=== PATIENT | male | born 1950 | race Caucasian/White ===

== ENCOUNTER 2016-10-25 08:04 | Outpatient (CLI) | payer OTHER | END 2016-10-25 08:05 | disposition home or self-care (01) | DX: Z00.00 Encounter for general adult medical examination without abnormal findings (principal); E11.9 Type 2 diabetes mellitus without complications; J30.9 Allergic rhinitis, unspecified; I10 Essential (primary) hypertension; I25.9 Chronic ischemic heart disease, unspecified; I50.30 Unspecified diastolic (congestive) heart failure; E78.5 Hyperlipidemia, unspecified; H61.20 Impacted cerumen, unspecified ear; G47.33 Obstructive sleep apnea (adult) (pediatric) ==

== ENCOUNTER 2017-02-10 08:33 | Outpatient (CLI) | payer OTHER | END 2017-02-10 08:34 | disposition home or self-care (01) | DX: N20.0 Calculus of kidney (principal); E11.9 Type 2 diabetes mellitus without complications; J30.9 Allergic rhinitis, unspecified; I10 Essential (primary) hypertension; I25.9 Chronic ischemic heart disease, unspecified; I50.30 Unspecified diastolic (congestive) heart failure; E78.5 Hyperlipidemia, unspecified; M54.5 Low back pain; G47.33 Obstructive sleep apnea (adult) (pediatric) ==

== ENCOUNTER 2017-05-12 10:32 | Outpatient (CLI) | payer OTHER ==
[2017-05-12 11:19] LABS: HEMOGLOBIN A1C 0.91 g/dL
[2017-05-12 13:26] LABS: BILIRUBIN,URINE NEGATIVE (NEGATIVE); PH,URINE 5.5 PH (5.0-7.5)
[2017-05-12 13:31] LABS: UA CHARGE (STRIP ONLY) YES; UR CULTURE IF IND NOT INDICATED
== END 2017-05-12 10:33 | disposition home or self-care (01) ==
LOC: LAB 10:32
PROVIDERS: ATTEND Internal Medicine
DX: J30.9 Allergic rhinitis, unspecified (principal); I10 Essential (primary) hypertension; I25.9 Chronic ischemic heart disease, unspecified; I50.30 Unspecified diastolic (congestive) heart failure; E78.5 Hyperlipidemia, unspecified; M54.5 Low back pain; N20.0 Calculus of kidney; G47.33 Obstructive sleep apnea (adult) (pediatric); E11.9 Type 2 diabetes mellitus without complications
CPT/HCPCS: 36415; 81001; 81003; 83036; 87086

== ENCOUNTER 2017-07-10 07:15 | Outpatient (CLI) | payer OTHER ==
[2017-07-10 07:49] LABS: HEMOGLOBIN A1C 1.03 g/dL
== END 2017-07-10 07:16 | disposition home or self-care (01) ==
LOC: LAB 07:15
PROVIDERS: ATTEND Internal Medicine
DX: E11.9 Type 2 diabetes mellitus without complications (principal)
CPT/HCPCS: 36415; 83036

== ENCOUNTER 2017-07-19 08:49 | Outpatient (CLI) | payer OTHER ==
--- NOTE | 2017-07-19 19:05 | Ultrasound Report ---
RETROPERITONEAL ULTRASOUND: 07/19/2017 No comparison. INDICATION: Nephrolithiasis. TECHNIQUE: Sonographic evaluation of the kidneys and urinary bladder was performed. FINDINGS: There is a right mid renal stone, 1.5 cm without evidence of obstruction. There is a left mid renal stone, 1.1 cm without evidence of obstruction. The kidneys appear otherwise normal in size, contour and echogenicity without mass or hydronephrosis. Right kidney 11.2 cm. Left kidney 12.0 cm. There are bilateral bladder jets. Bladder volume 145 mL. The patient was unable to void for the exam. IMPRESSION: BILATERAL NONOBSTRUCTING RENAL STONES ABOVE. JOB #: [id number] EXT JOB #:[id number]
== END 2017-07-19 08:50 | disposition home or self-care (01) ==
LOC: DI 08:49
PROVIDERS: ATTEND Internal Medicine
DX: N20.0 Calculus of kidney (principal)
CPT/HCPCS: 76770

== ENCOUNTER 2017-09-13 07:21 | Outpatient (CLI) | payer OTHER ==
[2017-09-13 07:56] LABS: HEMOGLOBIN A1C 0.9 g/dL
[2017-09-13 08:23] LABS: BUN - BLOOD UREA NITROGEN 15 mg/dL (6-20); CALCIUM 9.5 mg/dL (8.5-10.3); CARBON DIOXIDE - CO2 28 mmol/L (21-32); CHLORIDE 99 mmol/L (101-111); CHOL/HDL RATIO 3.9 (<5.0); CHOLESTEROL 142 mg/dL; CREATININE 1.2 mg/dL (0.6-1.2); GFR - MDRD 60 (>89); GLUCOSE 154 mg/dL (70-100); HDL CHOLESTEROL 36 mg/dL; POTASSIUM 4.4 mmol/L (3.5-5.0); SODIUM 137 mmol/L (135-145); TRIGLYCERIDES 170 mg/dL; VLDL CHOLESTEROL 34 mg/dL
== END 2017-09-13 07:22 | disposition home or self-care (01) ==
LOC: LAB 07:21
PROVIDERS: ATTEND Internal Medicine
DX: Z00.00 Encounter for general adult medical examination without abnormal findings (principal); E11.9 Type 2 diabetes mellitus without complications; E78.5 Hyperlipidemia, unspecified; I11.0 Hypertensive heart disease with heart failure; I50.30 Unspecified diastolic (congestive) heart failure; N20.0 Calculus of kidney; R31.29 Other microscopic hematuria; Z11.59 Encounter for screening for other viral diseases; J30.9 Allergic rhinitis, unspecified; J45.909 Unspecified asthma, uncomplicated; E66.9 Obesity, unspecified; G47.33 Obstructive sleep apnea (adult) (pediatric); M79.601 Pain in right arm; Z98.61 Coronary angioplasty status
CPT/HCPCS: 36415; 80048; 80061; 82043; 82570; 83036; 86803

== ENCOUNTER 2017-11-01 07:41 | Outpatient (CLI) | payer OTHER ==
[2017-11-01 08:26] LABS: HB2 TOTAL 15.4 g/dL; HEMOGLOBIN A1C 0.89 g/dL; HEMOGLOBIN A1C % 7.4 % (4.6-6.2)
== END 2017-11-01 07:42 | disposition home or self-care (01) ==
LOC: LAB 07:41
PROVIDERS: ATTEND Internal Medicine
DX: Z00.00 Encounter for general adult medical examination without abnormal findings (principal); E11.9 Type 2 diabetes mellitus without complications; J30.9 Allergic rhinitis, unspecified; I10 Essential (primary) hypertension; I25.9 Chronic ischemic heart disease, unspecified; I50.30 Unspecified diastolic (congestive) heart failure; E78.5 Hyperlipidemia, unspecified; N20.0 Calculus of kidney; G47.33 Obstructive sleep apnea (adult) (pediatric)
CPT/HCPCS: 36415; 83036

== ENCOUNTER 2017-12-30 13:07 | Outpatient (CLI) | payer OTHER | END 2017-12-30 13:08 | disposition critical access hospital (66) | LOC: EMS 13:07 | PROVIDERS: ATTEND Surgery | DX: R41.89 Other symptoms and signs involving cognitive functions and awareness (principal) | CPT/HCPCS: A0425; A0427 ==

== ENCOUNTER 2017-12-30 13:23 | Inpatient (IN) | payer OTHER ==
--- NOTE | 2017-12-30 13:38 | ED Physician Documentation ---
PD HPI FOCAL NEURO - Stated complaint Stated Complaint: ALOC - Chief complaint Chief Complaint: Neuro - History obtained from History obtained from: Patient, Family, EMS - History of Present Illness Timing - onset: Other (Suddenly at 11:00 today started to feel "drunk." He had just finished moving some furniture out of the garage, he was not exposed to anything, I specifically asked about pesticides. He feels like his mouth is very dry and he is just kind of out of it. He denies any focal neurologic complaints. His blood sugar in route was slightly high. No new medications.) Review of Systems Ten Systems: 10 systems reviewed and negative Constitutional: reports: Reviewed and negative Nose: reports: Reviewed and negative Throat: reports: Reviewed and negative Cardiac: reports: Reviewed and negative PD PAST MEDICAL HISTORY - Past Medical History Cardiovascular: Hypertension, High cholesterol Respiratory: Asthma, Sleep apnea, CPAP use Endocrine/Autoimmune: Type 2 diabetes Musculoskeletal: Other - Past Surgical History Past Surgical History: Yes Cardiovascular: Angioplasty - Present Medications Home Medications: Ambulatory Orders Medication Instructions Recorded Confirmed Aspirin [Colin] 81 mg PO DAILY 04/21/14 07/09/14 Atorvastatin [Lipitor] 40 mg PO DAILY 04/21/14 07/09/14 Losartan [Cozaar] 100 mg PO DAILY 04/21/14 07/09/14 Metformin HCl [Glucophage] 1,000 mg PO BID 04/21/14 07/18/14 Metoprolol Tartrate 25 mg PO BID 04/21/14 07/09/14 Insulin NPH Human Isophane 20 unit SQ QPM 07/09/14 07/09/14 [Humulin N Kwikpen] Omeprazole 20 mg PO DAILY 07/09/14 07/09/14 - Allergies Allergies/Adverse Reactions: Allergies Allergy/AdvReac Type Severity Reaction Status Date / Time No Known Drug Allergies Allergy Verified 12/30/17 13:30 - Social History Does the pt smoke?: No Smoking Status: Former smoker Does the pt drink ETOH?: Yes Does the pt have substance abuse?: No - Family History Family history: reports: Non contributory PD ED PE NORMAL - Vitals Vital signs reviewed: Yes - General General: Alert and oriented X 3, No acute distress - HEENT HEENT: PERRL, EOMI - Neck Neck: Supple, no meningeal sign, No bony TTP - Cardiac Cardiac: RRR, No murmur - Respiratory Respiratory: No respiratory distress, Clear bilaterally - Abdomen Abdomen: Normal bowel sounds, Soft, Non tender - Back Back: No CVA TTP, No spinal TTP - Derm Derm: Normal color, Warm and dry - Extremities Extremities: No edema, No calf tenderness / cord - Neuro Neuro: Alert and oriented X 3, Normal speech Eye Opening: Spontaneous Motor: Obeys Commands Verbal: Oriented GCS Score: 15 - Psych Psych: Normal mood, Normal affect NIHSS - Time Time: 13:30 - Level of Consciousness Level of consciousness: (0) Alert, Keenly responsive LOC Questions: (0) Answers both Q's correct LOC Commands: (0) Performs both correctly - Gaze Best Gaze: (0) Normal - Visual Visual: (0) No loss - Facial Palsy Facial Palsy: (0) Normal, symmetrical movement - Motor Arms (both separate) Motor Arm (right): (0) No drift Motor Arm (left): (0) No drift - Motor Legs (both separate) Motor Leg (right): (0) No drift Motor Leg (left): (0) No drift - Limb Ataxia Limb Ataxia: (0) Absent - Sensory Sensory: (0) Normal - Best Language Best Language: (0) No aphasia - Dysarthria Dysarthria: (1) [id number] dysarthria - Extinction and Inattention (formally neg Extinction and inattention: (0) No abnormality - Total Score/Results Total Score/Result: 1 Results - Vitals Vitals: Vital Signs - 24 hr 12/30/17 12/30/17 13:25 13:58 Temperature 36 C L Heart Rate 79 72 Respiratory 18 22 Rate Blood Pressure 151/73 H 130/73 O2 Saturation 94 91 L Oxygen O2 Source Room air - EKG (time done) 1413 Rate: Rate (enter#) (72) Rhythm: NSR [place]: Normal Intervals: Normal IN QRS: Normal Ischemia: ST depression (inferior) - Labs Labs: Laboratory Tests 12/30/17 12/30/17 12/30/17 14:11 14:11 14:11 WBC 9.3 RBC 4.63 L Hgb 14.0 Hct 41.5 L MCV 89.7 MCH 30.2 MCHC 33.7 RDW 13.7 Plt Count 247 MPV 7.4 Neut # 7.1 H Lymph # 1.6 [place] # 0.6 Eos # 0.0 Baso # 0.0 Absolute Nucleated RBC 0.00 Nucleated RBC % 0.0 PT 11.3 INR 1.0 Sodium 134 L Potassium 3.3 L Chloride 99 L Carbon Dioxide 21 Anion Gap 14.0 H BUN 17 Creatinine 1.1 Estimated GFR (MDRD) 67 L Glucose 214 H Calcium 8.8 Total Bilirubin 0.6 AST 36 ALT 51 Alkaline Phosphatase 62 Total Protein 6.9 Albumin 4.2 Globulin 2.7 Albumin/Globulin Ratio 1.6 Lipase 12 L Ethyl Alcohol < 5.0 - Rads (name of study) Head CT Radiology: Discussed with rads (NAD) PD MEDICAL DECISION MAKING - ED course ED course: 67-year-old gentleman with symptoms concerning for stroke although seems more toxicologic with a prominent dry mouth and lack of lateralizing symptoms. He went directly for CT and while he was there he spoke with neurology, Dr. Elizabeth Roberts at [facility] who recommended CT angiography in addition to the basic CTs. Unfortunately the power injector is down and we are unable to do CT angiography for the next couple of days. I called her back after the CT was done and discussed the symptoms more and she agrees that this really is not consistent with a stroke syndrome. As such TPA is not further offered were considered. He was having persistent symptoms and I spoke with Dr. Brown for observation at 3:10 PM. She was a little concerned that we would not be able to do other advanced imaging until Monday, but I called the medical research tech and we will be able to do MRI/MRA today. Departure - Departure Disposition: ED Place in Observation Clinical Impression: Stroke-like symptoms Altered mental status Qualifiers: Altered mental status type: disorientation Qualified Code(s): R41.0 - Disorientation, unspecified Condition: Stable
--- NOTE | 2017-12-30 14:26 | CT Preliminary Report ---
Exam: CT HEAD W/O STROKE PROTOCOL IMPRESSION: 1. No acute intra-cranial abnormality. 2. Incompletely characterized ovoid lesion in the superficial left parotid gland, possibly a lymph no de or salivary gland neoplasm. Recommend nonemergent outpatient ultrasound for further evaluation. [facility] The call report notification system was initiated by Dr. Shaheen Wood at 13:55 hrs on 12/30/17. The above findings were discussed with Dr. Urena by Dr. Shaheen Wood at 14:25 hrs on 12/30/17. SITE ID: [id number]
[2017-12-30 14:29] LABS: BASOPHILS % (AUTO) 0.4 %; EOSINOPHILS % (AUTO) 0.5 %; LYMPHOCYTES # (AUTO) 1.6 10^3/uL (1.5-3.5); LYMPHOCYTES % (AUTO) 17.4 %; MEAN CORPUSCULAR HEMOGLOBIN 30.2 pg (27.0-31.0); MEAN CORPUSCULAR HGB CONC 33.7 g/dL (32.0-36.0); MEAN CORPUSCULAR VOLUME 89.7 fL (80.0-94.0); MEAN PLATELET VOLUME 7.4 fL (7.4-11.4); MONOCYTES # (AUTO) 0.6 10^3/uL (0.0-1.0); NEUTROPHILS # (AUTO) 7.1 10^3/uL (1.5-6.6); NEUTROPHILS % (AUTO) 75.7 %; PLT - PLATELET COUNT 247 10^3/uL (130-450); RED BLOOD COUNT 4.63 10^6/uL (4.70-6.10); RED CELL DISTRIBUTION WIDTH 13.7 % (12.0-15.0); WHITE BLOOD COUNT 9.3 x10^3/uL (4.8-10.8)
[2017-12-30 14:32] LABS: PT - PROTHROMBIN TIME 11.3 secs (9.9-12.6)
[2017-12-30 14:40] LABS: ALBUMIN 4.2 g/dL (3.2-5.5); ALBUMIN/GLOBULIN RATIO 1.6 (1.0-2.2); ALKALINE PHOSPHATASE 62 IU/L (42-121); ALT ALANINE AMINOTRANSFERASE 51 IU/L (10-60); AST ASPARTATE AMINOTRANSFERASE 36 IU/L (10-42); BILIRUBIN,TOTAL 0.6 mg/dL (0.2-1.0); BUN - BLOOD UREA NITROGEN 17 mg/dL (6-20); CALCIUM 8.8 mg/dL (8.5-10.3); CARBON DIOXIDE - CO2 21 mmol/L (21-32); CHLORIDE 99 mmol/L (101-111); CREATININE 1.1 mg/dL (0.6-1.2); GFR - MDRD 67 (>89); GLUCOSE 214 mg/dL (70-100); LIPASE 12 U/L (22-51); SODIUM 134 mmol/L (135-145); TOTAL PROTEIN 6.9 g/dL (6.7-8.2)
--- NOTE | 2017-12-30 14:45 | CT Report ---
EXAM: CT HEAD EXAM DATE: 12/30/2017 01:46 PM. CLINICAL HISTORY: Possible CVA. COMPARISON: None. TECHNIQUE: Multiaxial CT images were obtained from the foramen magnum to the vertex. Reformats: Coron al. IV contrast: None. In accordance with CT protocol optimization, one or more of the following dose reduction techniques w ere utilized for this exam: automated exposure control, adjustment of mA and/or KV based on patient s ize, or use of iterative reconstructive technique. FINDINGS: Parenchyma: No intraparenchymal hemorrhage. No evidence of mass, midline shift, or CT findings of inf arction. Benitez-white differentiation is distinct. Extraaxial Spaces: Normal for age. No subdural or epidural collections identified. Ventricles: Normal in size and position. Sinuses and Orbits: Imaged paranasal sinuses, orbits, and mastoids show no significant abnormality. Bones: No evidence of fracture or calvarial defect. Other: Calcification of the distal bilateral vertebral arteries as well as the internal carotid arter ies noted. -Mildly hyperdense 8 x 11 mm ovoid focus in the region of the superficial left parotid gland (3/3). IMPRESSION: 1. No acute intracranial abnormality. 2. Incompletely characterized ovoid lesion in the superficial left parotid gland, possibly a lymph no de or salivary gland neoplasm. Recommend nonemergent outpatient ultrasound for further evaluation. RADIA The call report notification system was initiated by Dr. Shaheen Wood at 13:55 hrs on 12/30/17. The above findings were discussed with Dr. Urena by Dr. Shaheen Wood at 14:25 hrs on 12/30/17. Referring Provider Line: [phone] SITE ID: [id number]
--- NOTE | 2017-12-30 15:24 | XRAY Report ---
EXAM: CHEST RADIOGRAPHY EXAM DATE: 12/30/2017 02:47 PM. CLINICAL HISTORY: Cva. COMPARISON: 06/10/2014. TECHNIQUE: 2 views. FINDINGS: Lungs/Pleura: No focal opacities evident. No pleural effusion. No pneumothorax. Eventration of the le ft hemidiaphragm noted. Mediastinum: Heart and mediastinal contours are unremarkable. Other: None. IMPRESSION: 1. No acute intrathoracic abnormality identified. 2. Eventration of the left hemidiaphragm noted. [facility] Referring Provider Line: [phone] SITE ID: [id number]
[2017-12-30] MEDS ORDERED: SODIUM CHLORIDE FLUSH 0.9% 10 ML SYRINGE IVP PRN (15:53)
[2017-12-30] MEDS ORDERED: ONDANSETRON 4 MG/2 ML VIAL IVP PRN (16:09)
[2017-12-30] MEDS ORDERED: PROMETHAZINE 25 MG/1 ML VIAL IV PRN (16:09)
[2017-12-30] MEDS ORDERED: ACETAMINOPHEN 325 MG TABLET PO PRN (16:09)
[2017-12-30] MEDS ORDERED: GADOBUTROL 15 MMOL/15 ML VIAL ONE ×2 (16:12→16:13)
[2017-12-30] MEDS ORDERED: POTASSIUM CHLORIDE 20 MEQ TABLET PO ONE (17:25)
[2017-12-30] MEDS ORDERED: GADOBUTROL 15 MMOL/15 ML VIAL IVP ONE (17:29)
[2017-12-30] MEDS: SODIUM CHLORIDE FLUSH 0.9% 10 ML SYRINGE IVP SCH (18:19)
[2017-12-30] MEDS ORDERED: SODIUM CHLORIDE 0.9% 500 ML IV ONE (18:35)
--- NOTE | 2017-12-30 19:08 | MRI Report ---
EXAM: MRI BRAIN WITHOUT CONTRAST MR ANGIOGRAM BRAIN MR ANGIOGRAM NECK EXAM DATE: 12/30/2017 05:35 PM. CLINICAL HISTORY: Stroke like symptoms. Short of breath. COMPARISON: None. TECHNIQUE: MRI brain: Multiplanar, multisequence T1-weighted and fluid-sensitive MR sequences of the brain were performed. Sequences optimized for routine evaluation. Other: None. IV Contrast: None. MRA brain: MRA brain performed, multiple maximum intensity projection images are generated. MRA neck: Postcontrast MRA neck performed, multiple maximum intensity projection images are generated . 12 cc Gadavist given intravenously. Findings: Relevant images are indicated (image number, series number). MRI brain: There is no acute or subacute ischemic change in the brain. There is no significant hemosi kesha deposition present in the brain. There is no hemorrhage, mass or midline shift. Results cistern s, bilateral IACs, bilateral Meckel's caves are clear. Orbital contents negative, patient status post right lens surgery. Moderate brain atrophy, moderate compensatory ventricular enlargement. Mild scat tered periventricular, subcortical white matter disease present. Pituitary unremarkable. Mild midbrai n atrophy. Craniocervical junction, limited evaluation upper cervical cord negative. MR angiogram brain: Left ICA: Patent including the MCA, NIMO distribution. There is a prominent anterior communicating art cirilo, no aneurysm seen. Right ICA: Patent including MCA distribution with either motion artifact versus atherosclerotic narro wing proximal M2 segment likely contributing to the angular artery. Small poorly seen right A1 segmen t. Remaining right NIMO distribution widely patent. Posterior circulation: Patent distal bilateral vertebral arteries, basilar artery, patent bilateral P CA distribution. MRA neck: Aortic arch: Patent, bovine configuration. Left carotid artery: Widely patent. Right carotid artery: At least 30-40% suspected atherosclerotic narrowing proximal ICA, otherwise pat ent. Left vertebral artery: Proximal tortuosity, likely less than 20% ostial narrowing, otherwise patent. Right vertebral artery: At least 50-60% ostial narrowing, otherwise patent. No aneurysm, dissection, or AVM. Impressions: MRI brain: 1. No acute or subacute ischemic change. 2. Moderate brain atrophy, mild scattered white matter disease most likely related to chronic small v essel ischemic disease. MRA brain: 1. Left ICA: Patent. 2. Right ICA: Patent, suspicion for atherosclerotic narrowing proximal M2 segment likely angular bran ch artery, there is motion artifact. Otherwise patent MCA, NIMO distribution. Hypoplastic right A1 seg ment. 3. Posterior circulation: Patent. MRA neck: 1. Aortic arch: Patent, bovine configuration. 2. Left carotid artery: Widely patent. 3. Right carotid artery: At least 30-40% suspected atherosclerotic narrowing of the proximal ICA, oth erwise patent. 4. Left vertebral artery: 20% ostial narrowing, otherwise patent. 5. Right vertebral artery: 50-60% ostial narrowing, otherwise patent. 6. No aneurysm, dissection, or AVM. RADIA Referring Provider Line: [phone] SITE ID: [id number]
[2017-12-30 19:37] LABS: HB2 TOTAL 15.4 g/dL; HEMOGLOBIN A1C 0.94 g/dL; HEMOGLOBIN A1C % 7.7 % (4.6-6.2)
[2017-12-30] MEDS ORDERED: METOPROLOL TARTRATE 25 MG TABLET PO SCH (21:00)
[2017-12-30] MEDS ORDERED: INSULIN NPH HUMAN 100 UNIT/1 ML 10 ML MDV SUBQ SCH (21:00)
[2017-12-30] MEDS: INSULIN ASPART 300 UNIT/3 ML PEN SUBQ SCH (21:23)
[2017-12-31] MEDS: SODIUM CHLORIDE FLUSH 0.9% 10 ML SYRINGE IVP SCH (00:52)
--- NOTE | 2017-12-31 01:15 | HISTORY & PHYSICAL EXAMINATION ---
DATE OF SERVICE: 12/30/2017 Physician: Sheila Brown MD CHIEF COMPLAINT: Feeling off balance. HISTORY OF PRESENT ILLNESS: The patient is a 67-year-old white male with past medical history of obstructive sleep apnea, hypertension, diabetes and coronary artery disease, who was in his usual state of health up to about 11 a.m. on 12/30/2017. Prior to that, he was feeling well. He was actually moving some boxes and getting some work around his house. Around 11, he suddenly started to feel a sense of dizziness, dysequilibrium/being off balance. He described it that the feeling was similar to being drunk; however, he did not drink any alcohol. He also had some dry mouth but denied headache. Did not have focal weakness or numbness. Denied dysuria, fever, cough or chest pain. He never experienced similar symptoms in the past. Upon presentation to the ER, the patient had stable vital signs and he was afebrile. ER workup was fairly unrevealing, including negative CT scan of the brain. There was a chest x-ray which showed left hemidiaphragm eventration but no acute abnormality. EKG showed sinus rhythm. Troponin was unremarkable. There were minor laboratory abnormalities including sodium 134, potassium 3.3, blood glucose 214, but no abnormality to explain the patient's symptoms. Alcohol level was 0. Coagulation studies were unremarkable. White blood cell count was normal. Hemoglobin was 14. Platelet count was 247. At the ER, the patient had an NIH stroke scale 1 for dysarthria. The case was discussed with Teleneurology. They did not recommend TPA or transfer of this patient. They recommended further workup with the probable diagnosis of cerebrovascular accident. PAST MEDICAL HISTORY 1. Hypertension. 2. Insulin-dependent diabetes, diagnosed about 10 years ago, type 2. 3. Coronary artery disease, status post stent placement in 2011. OUTPATIENT MEDICATIONS: Include 1. Metoprolol. 2. Hydrochlorothiazide. 3. Losartan. 4. Aspirin. 5. Lipitor. 6. Metformin. 7. Insulin. REVIEW OF SYSTEMS: Please see pertinent positives and pertinent negatives listed above at history of present illness. I completed 12-point review and the patient denied all other complaints. In particular, he did not report changes in his medications or doing anything unusual. Did not report sick contacts either. PRIMARY CARE PHYSICIAN: Dr. Ramesh Camacho. SOCIAL HISTORY: The patient does not smoke. He drinks alcohol almost every day , but when he does not drink, he does not have any symptoms with anxiety or withdrawal-like issue. FAMILY HISTORY: Positive for cerebrovascular accident in the mother at age 60. ER workup reviewed per electronic medical record. PHYSICAL EXAMINATION VITAL SIGNS: Blood pressure 146/71, heart rate between 60 and 70, respiration rate 16, oxygen saturation 96% on room air, temperature 36.4 Celsius. GENERAL: This is a well-developed male with truncal obesity. He was not in distress. NEUROLOGIC: No double vision. Intact speech and cognition. No facial asymmetry. No focal neurological abnormality. PSYCHIATRIC: Normal mood and affect. CARDIOVASCULAR: S1, S2, regular. No pathologic murmur. RESPIRATORY: Clear to auscultation without wheezes or crackles. ABDOMEN: Soft, benign, slightly distended, nontender. Bowel tones present. LYMPHATIC: No lymphedema. SKIN: Without jaundice or pallor. ASSESSMENT AND PLAN 1. This 67-year-old male presents with sudden onset of dysequilibrium, dizziness, a sense of being off balance. This could be a posterior stroke until proven otherwise. The patient has multiple risk factors, including obesity, diabetes, family history, hypertension, and history of coronary artery disease as well. Additional possibilities would include benign etiology such as occult urinary tract infection, transient ischemic attack, or labyrinthitis. 2. Hyperglycemia/uncontrolled diabetes. 3. Mild electrolyte abnormalities including hypokalemia and hyponatremia, likely secondary to diuretic use including hydrochlorothiazide and losartan. 4. Incidental finding on CT scan of the head: left-sided parotid or salivary gland lesion which was read as a lymph node; however, it needs to be followed up with non-urgent outpatient ultrasound to rule out malignancy. Again, this is an incidental finding. The patient will need to be updated on this and have outpatient followup. If this would be a malignancy, then obviously brain malignancy or metastatic disease would be on the differential diagnosis as well, and for that, MRI brain would provide further result. 5. Incidental finding on x-ray of the chest: left-sided hemidiaphragm eventration; no symptoms. 6. Obstructive sleep apnea, on CPAP, stable. 7. Coronary artery disease, appears stable with negative troponin. PLAN AND ORDERS 1. Patient is getting admitted as inpatient. At this point, the diagnosis is probable cerebrovascular accident, and for that, further workup and monitoring is needed. MRI and MRA of head and neck were ordered and currently pending. We will order echocardiogram, monitor the patient on telemetry, recheck troponin. We will monitor blood glucose on sliding scale and continue outpatient medications as appropriate. I will hold diuretics as the patient appeared dehydrated and he had electrolyte abnormalities. For secondary stroke protection, we will continue aspirin and statin. 2. Regarding the salivary gland or parotid abnormality, I will update the patient tomorrow and will discuss followup with ultrasound. 3. Deep venous thrombosis prophylaxis, supportive care, symptom control. 4. Further plan will depend on the clinical course. Attestation: I certify that the reasonable expectation is that the patient remains hospitalized for 48 hrs, but will likely discharge or transfer to another facility within 96 hrs. Time spent with this admission was 55 minutes. cc: Ramesh Camacho MD TD: 12/31/2017 01:15 MTDD
[2017-12-31 01:22] LABS: BILIRUBIN,URINE NEGATIVE (NEGATIVE); GLUCOSE, URINE (UA) NEGATIVE (NEGATIVE); KETONES,URINE (UA) NEGATIVE (NEGATIVE); LEUKOCYTE ESTERASE, URINE NEGATIVE (NEGATIVE); NITRITE,URINE NEGATIVE (NEGATIVE); OCCULT BLOOD,URINE NEGATIVE (NEGATIVE); PH,URINE 5.5 PH (5.0-7.5); PROTEIN,URINE NEGATIVE (NEGATIVE); UROBILINOGEN,URINE 0.2 (NORMAL) E.U./dL (NORMAL)
[2017-12-31 01:30] LABS: CLARITY,URINE CLEAR (CLEAR)
[2017-12-31 01:49] LABS: AMPHETAMINE SCREEN,URINE NEGATIVE (NEGATIVE); BENZODIAZEPINES SCREEN, URINE NEGATIVE (NEGATIVE); COCAINE SCREEN URINE NEGATIVE (NEGATIVE); METHADONE SCREEN, URINE NEGATIVE (NEGATIVE); METHAMPHETAMINES SCREEN, URINE NEGATIVE (NEGATIVE); MUDS CUTOFF CONCENTRATIONS CUTOFF CONC BELOW:; OPIATE SCREEN, URINE NEGATIVE (NEGATIVE); OXYCODONE SCREEN, URINE NEGATIVE (NEGATIVE); PROPOXYPHENE SCREEN, URINE NEGATIVE (NEGATIVE); TRICYCLIC ANTIDEPRESSANT,URINE NEGATIVE (NEGATIVE)
[2017-12-31 08:06] VITALS: BP 124/65
[2017-12-31] MEDS: INSULIN ASPART 300 UNIT/3 ML PEN SUBQ SCH (08:27)
--- NOTE | 2017-12-31 08:55 | Discharge Plan ---
Discharge Plan Disposition: Home, Self Care Condition: Stable Prescriptions: Metoprolol Succinate [Toprol Xl] 25 mg PO DAILY #30 tablet Diet: Diabetic Activity Restrictions: Activity as Tolerated Additional Instructions or Follow Up instructions: 1. Hold Losartan, check blood pressure daily, if above 155 restart Losartan. 2. Please note, heart rate was slower than normal, metoprolol was decreased. If HR is lower than 50 stop metoprolol. 3. Follow up with PCP/ Dr. Camacho for adjustment of blood pressure medications. Might need cardiology follow up, if heart rate is found lower than 50. 4. Have outpatient ultrasound for left facial/parotis node to further evaluate. Follow up with PCP to order the test. No Smoking: If you smoke, Please STOP! Call for help. Follow-up with: Ramesh Camacho MD [Primary Care Provider] -
[2017-12-31] MEDS ORDERED: PANTOPRAZOLE 40 MG TABLET PO SCH (09:00)
[2017-12-31] MEDS ORDERED: ATORVASTATIN 40 MG TABLET PO SCH (09:00)
[2017-12-31] MEDS ORDERED: POLYETHYLENE GLYCOL 3350 17 GM PACKET PO SCH (09:00)
[2017-12-31] MEDS ORDERED: ENOXAPARIN 40 MG/0.4 ML SYRINGE SUBQ SCH (09:00)
[2017-12-31] MEDS ORDERED: ASPIRIN CHEW 81 MG TABLET PO SCH (09:00)
--- NOTE | 2017-12-31 19:56 | DISCHARGE SUMMARY ---
Physician: Sheila Brown MD DATE OF ADMISSION: 12/30/2017 DATE OF DISCHARGE: 12/31/2017 DISCHARGE DIAGNOSES 1. Disequilibrium, dizziness, dysarthria, likely multifactorial, was ruled out for acute cerebrovascular accident. 2. Dehydration/borderline low blood pressure and bradycardia. 3. Labyrinthitis/acute viral syndrome could contribute. 4. Mild electrolyte abnormalities/hypokalemia and hyponatremia, replaced prior to discharge. DISCHARGE MEDICATIONS 1. Losartan is recommended to be on hold. The patient is instructed to measure his blood pressure and restart losartan if systolic blood pressure is above 155. 2. Metoprolol 25 mg twice daily was decreased to half. 3. A prescription for Toprol-XL 25 mg once a day was given. Next, the following medications continued unchanged. 1. Aspirin. 2. Lipitor. 3. Insulin NPH. 4. Metformin. 5. Omeprazole. For doses and frequencies, I refer to the medication reconciliation. DISCHARGE RECOMMENDATIONS 1. Hold losartan, check blood pressure daily. If systolic blood pressure above 155 restart losartan. 2. Please note heart rate was slower than normal. Metoprolol was decreased. If heart rate is lower than 50, stop metoprolol and follow up with the primary care physician. 3. Follow up with the primary care physician, Dr. Camacho, for adjustment of blood pressure medications, also for better diabetic control as hemoglobin A1c was found at 7.7. Might need cardiology followup if heart rate is found lower than 50. In that case, obviously metoprolol will need to be discontinued. 4. Have outpatient ultrasound for left facial/parotid node for further evaluation. Follow up with primary care physician, Dr. Camacho, to order the outpatient test. DISCHARGE CONDITION VITAL SIGNS: Heart rate between 51 and 61, blood pressure 124/65, respiratory rate of 20, oxygen saturation 98% on room air, temperature 36.7 Celsius. GENERAL: The patient is a well-developed male who was not in distress. NEUROLOGIC: Alert, oriented, nonfocal. Intact speech and cognition. No focal neurologic abnormality. SECONDARY DIAGNOSES/PAST MEDICAL HISTORY 1. Obstructive sleep apnea, using nocturnal CPAP. 2. Hypertension. 3. Type 2 diabetes/insulin-dependent. 4. History of coronary artery disease, status post stent placement. DIAGNOSTIC TESTS 1. Echocardiogram showed normal ejection fraction 60-65%, normal left ventricular systolic function, no wall motion abnormality. Grade II diastolic dysfunction. 2. CT scan of the head showed no acute intracranial abnormality. It showed an incidental finding of incompletely characterized ovoid lesion in the superficial left parotid gland, possibly a lymph node or a salivary gland. Further outpatient ultrasound was recommended on a nonemergent basis. 3. MRI of the brain showed no acute intracranial abnormality. It showed chronic small vessel ischemic disease. 4. MRA showed no hemodynamically significant stenosis or vascular occlusion. 5. Telemetry showed no abnormal event except for sinus bradycardia, HR 50-60. 6. EKG showed sinus rhythm with nonspecific ST abnormalities, no ischemia. LABORATORIES: Included, hemoglobin A1c 7.7, potassium 3.3. Normal thyroid function, normal B12 level. Unremarkable liver function tests and a normal troponin. White blood cell count was normal. Hemoglobin was 14, platelet count was normal. Coagulation studies were unremarkable. ESR was 11. Urinalysis was negative. Toxicology screen was positive for cannabinoid. Alcohol level was undetectable. BRIEF PRESENTATION AND HOSPITAL COURSE: Mr. Davenport is a 67-year-old white male with the above listed past medical problems, who presented with acute onset of disequilibrium, dizziness, and feeling acutely ill. He underwent workup for cerebrovascular accident or other abnormality and had a short hospital stay during which he improved back to his baseline. The only intervention was hydration and outpatient antihypertensives were on hold. During the hospital stay, the patient had normal blood pressure, regardless of not getting antihypertensives and he was found dehydrated. After hydration, electrolyte replacement he felt back to his normal state of health. The etiology of his symptoms was most likely dehydration plus/ minus viral illness /labyrinthitis. Prior to discharge, I discussed medication adjustment with the patient. Losartan is on hold due to blood pressure is still on the lower side/normal. Metoprolol was decreased due to bradycardia and we recommend blood pressure and heart rate checks and following up with the primary care physician for further adjustment if needed. Prior to discharge, the patient verbalized understanding of discharge plan and followup. He is discharging in stable condition. He is recommended close outpatient followup. Time spent with this discharge, more than 30 minutes. TD: 12/31/2017 19:54 TERRY
== END 2017-12-31 09:30 | disposition home or self-care (01) | DRG 641 ==
LOC: EDUNIT# → ED 13:23 → MS2 15:53
PROVIDERS: ADMIT Internal Medicine; ATTEND Internal Medicine
DX: E86.0 Dehydration (principal); B34.9 Viral infection, unspecified; H83.09 Labyrinthitis, unspecified ear; E87.6 Hypokalemia; E87.1 Hypo-osmolality and hyponatremia; R00.1 Bradycardia, unspecified; T44.7X5A Adverse effect of beta-adrenoreceptor antagonists, initial encounter; I95.2 Hypotension due to drugs; T46.5X5A Adverse effect of other antihypertensive drugs, initial encounter; I10 Essential (primary) hypertension; E78.00 Pure hypercholesterolemia, unspecified; E11.65 Type 2 diabetes mellitus with hyperglycemia; I25.10 Atherosclerotic heart disease of native coronary artery without angina pectoris; G47.33 Obstructive sleep apnea (adult) (pediatric); E66.9 Obesity, unspecified; Z79.4 Long term (current) use of insulin; Z79.82 Long term (current) use of aspirin; Z87.891 Personal history of nicotine dependence; Z95.5 Presence of coronary angioplasty implant and graft; Z68.37 Body mass index [BMI] 37.0-37.9, adult; Z82.3 Family history of stroke
CPT/HCPCS: 36415; 70450; 70544; 70549; 70551; 71046; 80053; 80306; 80320; 81001; 81003; 82607; 83036; 83690; 84443; 84484; 85025; 85610; 85651; 87086; 93005; 93306; 99284; 99285

== ENCOUNTER 2018-01-23 10:00 | Outpatient (CLI) | payer OTHER ==
[2018-01-23 10:38] LABS: HB2 TOTAL 15.6 g/dL; HEMOGLOBIN A1C 0.9 g/dL; HEMOGLOBIN A1C % 7.4 % (4.6-6.2)
== END 2018-01-23 10:01 | disposition home or self-care (01) ==
LOC: LAB 10:00
PROVIDERS: ATTEND Internal Medicine
DX: J30.9 Allergic rhinitis, unspecified (principal); I25.9 Chronic ischemic heart disease, unspecified; I11.0 Hypertensive heart disease with heart failure; I50.30 Unspecified diastolic (congestive) heart failure; E11.9 Type 2 diabetes mellitus without complications; E78.5 Hyperlipidemia, unspecified; N20.0 Calculus of kidney; G47.33 Obstructive sleep apnea (adult) (pediatric); B35.1 Tinea unguium
CPT/HCPCS: 36415; 83036

== ENCOUNTER 2018-05-22 13:59 | Outpatient (CLI) | payer OTHER ==
[2018-05-22 14:32] LABS: HB2 TOTAL 15.3 g/dL; HEMOGLOBIN A1C 0.81 g/dL
== END 2018-05-22 14:00 | disposition home or self-care (01) ==
LOC: LAB 13:59
PROVIDERS: ATTEND Internal Medicine
DX: E11.9 Type 2 diabetes mellitus without complications (principal); J30.9 Allergic rhinitis, unspecified; I10 Essential (primary) hypertension; I25.9 Chronic ischemic heart disease, unspecified; I50.30 Unspecified diastolic (congestive) heart failure; E78.5 Hyperlipidemia, unspecified; R22.1 Localized swelling, mass and lump, neck; G47.33 Obstructive sleep apnea (adult) (pediatric); B35.1 Tinea unguium
CPT/HCPCS: 36415; 83036

== ENCOUNTER 2018-08-08 08:21 | Emergency (ER) | payer OTHER ==
[2018-08-08 08:34] VITALS: BP 143/70
[2018-08-08] MEDS ORDERED: BUFFERED LIDOCAINE 10 ML SYRINGE SUBQ STA (08:42)
--- NOTE | 2018-08-08 08:58 | ED Physician Documentation ---
PD HPI UPPER EXT INJURY - Stated complaint Stated Complaint: LEFT HAND LAC - Chief complaint Chief Complaint: Laceration - History obtained from History obtained from: Patient - History of Present Illness Location: Left, Hand Type of injury: Laceration Where injury occurred: Home Timing - onset: Today Timing - duration: Minutes Timing - details: Abrupt onset, Still present Improved by: Rest Worsened by: Moving, Palpating Associated symptoms: No: Weakness, Numbness, Tingling Contributing factors: No: Anticoagulated Similar symptoms before: Diagnosis (laceration) Recently seen: Not recently seen - Additonal information Additional information: 68-year-old male was doing the dishes washing a cocktail glass when it broke and lacerated his left palm. He is able to control bleeding with direct pressure comes into the emergency department now for suturing. He is up-to-date on his t etanus. Review of Systems Constitutional: denies: Fever Respiratory: denies: Cough GI: denies: Nausea, Vomiting Skin: reports: Laceration (s) Musculoskeletal: reports: Extremity pain. denies: Neck pain, Back pain PD PAST MEDICAL HISTORY - Past Medical History Cardiovascular: Hypertension, High cholesterol, Angina Respiratory: Asthma, Sleep apnea, CPAP use Endocrine/Autoimmune: Type 2 diabetes GI: Hemorrhoids : Kidney stones HEENT: Other Psych: None Musculoskeletal: None Derm: None - Past Surgical History Past Surgical History: Yes Cardiovascular: Angioplasty - Present Medications Home Medications: Ambulatory Orders Medication Instructions Recorded Confirmed Aspirin [Colin] 81 mg PO DAILY 04/21/14 07/09/14 Atorvastatin [Lipitor] 40 mg PO DAILY 04/21/14 07/09/14 Metformin HCl [Glucophage] 1,000 mg PO BID 04/21/14 07/18/14 Insulin NPH Human Isophane 20 unit SQ QPM 07/09/14 07/09/14 [Humulin N Kwikpen] Omeprazole 20 mg PO DAILY 07/09/14 07/09/14 Metoprolol Succinate [Toprol Xl] 25 mg PO DAILY #30 tablet 12/31/17 - Allergies Allergies/Adverse Reactions: Allergies Allergy/AdvReac Type Severity Reaction Status Date / Time No Known Drug Allergies Allergy Verified 08/08/18 08:34 - Social History Does the pt smoke?: No Smoking Status: Former smoker Does the pt drink ETOH?: Yes Does the pt have substance abuse?: No PD ED PE NORMAL - Vitals Vital signs reviewed: Yes (hypertensive ) - General General: Alert and oriented X 3, No acute distress, Well developed/nourished - HEENT HEENT: Atraumatic, PERRL, EOMI - Respiratory Respiratory: No respiratory distress - Derm Derm: Normal color, Warm and dry, No rash - Extremities Extremities: No deformity, No edema, Other (There is a 2cm laceration to the left palm over the web space between the 1st and 2nd digits. The distal n/v is intact and the laceration does not involve deeper structures. ) - Neuro Neuro: Alert and oriented X 3, med peds 2-12 intact, No motor deficit, No sensory deficit, Normal speech Eye Opening: Spontaneous Motor: Obeys Commands Verbal: Oriented GCS Score: 15 - Psych Psych: Normal mood, Normal affect Results - Vitals Vitals: Vital Signs - 24 hr 08/08/18 08:31 Temperature 35.7 C L Heart Rate 56 L Respiratory 14 Rate Blood Pressure 143/70 H O2 Saturation 96 Oxygen O2 Source Room air Procedures - Laceration (location) left hand Length in cm: 2 Wound type: Linear, Clean Neurovascular status: Sensory intact, Motor intact, Vascular intact Anesthesia: Lidocaine 1%, With bicarb Wound Preparation: Hibiclens, Irrigated copiously NS, Wound explored, To the base Skin layer closure: Nylon, Interrupted, Size #-0 - enter number (4-0), Sutures - enter # (3) Other: Patient tolerated well, No complications, Neurovascular intact, Dressing applied, Tetanus UTD Complexity: Simple PD MEDICAL DECISION MAKING - ED course Complexity details: considered differential, d/w patient ED course: 68-year-old male with a palm laceration sutures placed tolerates these well. He is up-to-date on his last tetanus Departure - Departure Disposition: 01 Home, Self Care Clinical Impression: Hand laceration Qualifiers: Encounter type: initial encounter Foreign body presence: without foreign body Laterality: left Qualified Code(s): S61.412A - Laceration without foreign body of left hand, initial encounter Condition: Stable Instructions: ED Laceration Hand Follow-Up: Ramesh Camacho MD [Primary Care Provider] - Comments: Sutures will need to be removed in 7-10 days.
== END 2018-08-08 09:19 | disposition home or self-care (01) ==
LOC: ED 08:21
DX: S61.412A Laceration without foreign body of left hand, initial encounter (principal); W25.XXXA Contact with sharp glass, initial encounter; Y93.G1 Activity, food preparation and clean up; Y92.009 Unspecified place in unspecified non-institutional (private) residence as the place of occurrence of the external cause; Z87.891 Personal history of nicotine dependence; I10 Essential (primary) hypertension
CPT/HCPCS: 12001; 99282; 99283

== ENCOUNTER 2018-08-23 07:32 | Outpatient (CLI) | payer OTHER ==
[2018-08-23 08:32] LABS: ALBUMIN 4.2 g/dL (3.2-5.5); ALBUMIN/GLOBULIN RATIO 1.5 (1.0-2.2); ALKALINE PHOSPHATASE 61 IU/L (42-121); ALT ALANINE AMINOTRANSFERASE 31 IU/L (10-60); AST ASPARTATE AMINOTRANSFERASE 25 IU/L (10-42); BILIRUBIN,TOTAL 0.6 mg/dL (0.2-1.0); BUN - BLOOD UREA NITROGEN 19 mg/dL (6-20); CALCIUM 9.4 mg/dL (8.5-10.3); CARBON DIOXIDE - CO2 27 mmol/L (21-32); CHLORIDE 102 mmol/L (101-111); CHOL/HDL RATIO 4.3 (<5.0); CHOLESTEROL 176 mg/dL; GFR - MDRD 74 (>89); GLUCOSE 139 mg/dL (70-100); HDL CHOLESTEROL 41 mg/dL; LDL CHOLESTEROL,CALCULATED 101 mg/dL; LDL/HDL RATIO 2.5 (<3.6); SODIUM 135 mmol/L (135-145); VLDL CHOLESTEROL 34 mg/dL
[2018-08-23 08:53] LABS: HB2 TOTAL 16.4 g/dL; HEMOGLOBIN A1C 0.94 g/dL; HEMOGLOBIN A1C % 7.4 % (4.6-6.2)
[2018-08-23 09:43] LABS: CREATININE,URINE 92.1 mg/dL
[2018-08-23 09:49] LABS: MICROALBUMIN,URINE < 0.2 mg/dL (0-300.0)
[2018-08-24 14:41] LABS: HEPATITIS C ANTIBODY NON-REACTIVE (NON-REACTIVE)
== END 2018-08-23 07:33 | disposition home or self-care (01) ==
LOC: LAB 07:32
PROVIDERS: ATTEND Internal Medicine
DX: Z00.00 Encounter for general adult medical examination without abnormal findings (principal); J30.9 Allergic rhinitis, unspecified; I10 Essential (primary) hypertension; I25.9 Chronic ischemic heart disease, unspecified; I50.30 Unspecified diastolic (congestive) heart failure; E78.5 Hyperlipidemia, unspecified; N20.0 Calculus of kidney; G47.33 Obstructive sleep apnea (adult) (pediatric); B35.1 Tinea unguium; L98.9 Disorder of the skin and subcutaneous tissue, unspecified
CPT/HCPCS: 36415; 80053; 80061; 82043; 82570; 83036; 83721; 86803

== ENCOUNTER 2018-12-06 14:12 | Outpatient (CLI) | payer OTHER ==
[2018-12-06 15:56] LABS: HEMOGLOBIN A1C 0.79 g/dL
== END 2018-12-06 14:13 | disposition home or self-care (01) ==
LOC: LAB 14:12
PROVIDERS: ATTEND Internal Medicine
DX: E11.9 Type 2 diabetes mellitus without complications (principal)
CPT/HCPCS: 36415; 83036

== ENCOUNTER 2019-05-30 07:52 | Outpatient (CLI) | payer OTHER ==
[2019-05-30 13:59] LABS: HB2 TOTAL 14.7 g/dL; HEMOGLOBIN A1C 0.77 g/dL; HEMOGLOBIN A1C % 6.9 % (4.6-6.2)
== END 2019-05-30 07:53 | disposition home or self-care (01) ==
LOC: LAB 07:52
PROVIDERS: ATTEND Internal Medicine
DX: E11.9 Type 2 diabetes mellitus without complications (principal)
CPT/HCPCS: 36415; 83036

== ENCOUNTER 2019-05-31 12:02 | Emergency (ER) | payer OTHER ==
[2019-05-31 12:28] LABS: BILIRUBIN,URINE NEGATIVE (NEGATIVE); GLUCOSE, URINE (UA) NEGATIVE (NEGATIVE); KETONES,URINE (UA) NEGATIVE (NEGATIVE); LEUKOCYTE ESTERASE, URINE NEGATIVE (NEGATIVE); NITRITE,URINE NEGATIVE (NEGATIVE); OCCULT BLOOD,URINE LARGE (NEGATIVE); PROTEIN,URINE NEGATIVE (NEGATIVE); UROBILINOGEN,URINE 0.2 (NORMAL) E.U./dL (NORMAL)
[2019-05-31 12:29] LABS: CLARITY,URINE CLEAR (CLEAR)
[2019-05-31 12:31] LABS: BASOPHILS % (AUTO) 0.2 %; EOSINOPHILS # (AUTO) 0.1 10^3/uL (0.0-0.7); EOSINOPHILS % (AUTO) 0.5 %; HGB - HEMOGLOBIN 14.4 g/dL (14.0-18.0); LYMPHOCYTES # (AUTO) 1.1 10^3/uL (1.5-3.5); LYMPHOCYTES % (AUTO) 11.3 %; MEAN CORPUSCULAR HEMOGLOBIN 30.3 pg (27.0-31.0); MEAN CORPUSCULAR HGB CONC 32.4 g/dL (32.0-36.0); MEAN CORPUSCULAR VOLUME 93.7 fL (80.0-94.0); MEAN PLATELET VOLUME 9.3 fL (7.4-11.4); MONOCYTES # (AUTO) 0.7 10^3/uL (0.0-1.0); MONOCYTES % (AUTO) 7.4 %; NEUTROPHILS % (AUTO) 80.3 %; PLT - PLATELET COUNT 215 10^3/uL (130-450); RED BLOOD COUNT 4.75 10^6/uL (4.70-6.10); RED CELL DISTRIBUTION WIDTH 12.9 % (12.0-15.0); WHITE BLOOD COUNT 9.9 x10^3/uL (4.8-10.8)
[2019-05-31 12:45] LABS: ALBUMIN 4.1 g/dL (3.2-5.5); ALBUMIN/GLOBULIN RATIO 1.3 (1.0-2.2); BILIRUBIN,TOTAL 0.7 mg/dL (0.2-1.0); CALCIUM 9.6 mg/dL (8.5-10.3); CREATININE 1.5 mg/dL (0.6-1.2); TOTAL PROTEIN 7.2 g/dL (6.7-8.2)
[2019-05-31 12:47] LABS: RBC,URINE TNTC /HPF (0-5); SQUAMOUS EPITHELIAL CELL,UR RARE Squamous (<= Few)
[2019-05-31 12:48] LABS: BACTERIA,URINE Rare /HPF (None Seen)
--- NOTE | 2019-05-31 13:43 | ED Physician Documentation ---
History of Present Illness - Stated complaint Stated Complaint: RT SIDED ABD PX - Chief complaint Chief Complaint: Abd Pain - Additonal information Additional information: This is a 68-year-old male with history of hypertension, diabetes, ne phrolithiasis,who presents with right lower quadrant abdominal pain and nausea began this morning. Patient states he woke up and he has a constant pain which is aching and located in his right lower quadrant. It is nonradiating. He denies seeing any blood in his urine, or having any dysuria. He has had a kidney stone before, and this feels different than his past kidney stones. He has been nauseated but has not vomited. He is also had several episodes of diarrhea. He denies fever. No testicular pain or penile pain. Review of Systems Constitutional: denies: Fever Nose: denies: Rhinorrhea / runny nose Cardiac: denies: Chest pain / pressure Respiratory: denies: Dyspnea GI: reports: Abdominal Pain, Nausea : denies: Dysuria Skin: denies: Rash Neurologic: denies: Generalized weakness Endocrine: denies: Easy bruising / bleeding Immunocompromised: denies: Immunocompromised PD PAST MEDICAL HISTORY - Past Medical History Cardiovascular: Hypertension, High cholesterol, Angina Respiratory: Asthma, Sleep apnea, CPAP use Endocrine/Autoimmune: Type 2 diabetes GI: Hemorrhoids : Kidney stones HEENT: Other Psych: None Musculoskeletal: None Derm: None - Past Surgical History Past Surgical History: Yes Cardiovascular: Angioplasty - Present Medications Home Medications: Ambulatory Orders Medication Instructions Recorded Confirmed Aspirin [Colin] 81 mg PO DAILY 04/21/14 07/09/14 Atorvastatin [Lipitor] 40 mg PO DAILY 04/21/14 07/09/14 Metformin HCl [Glucophage] 1,000 mg PO BID 04/21/14 07/18/14 Insulin NPH Human Isophane 20 unit SQ QPM 07/09/14 07/09/14 [Humulin N Kwikpen] Metoprolol Succinate [Toprol Xl] 25 mg PO DAILY #30 tablet 12/31/17 Losartan [Cozaar] 50 mg PO DAILY 05/31/19 05/31/19 Ondansetron Odt [Zofran] 4 mg TL Q6H PRN #10 tablet 05/31/19 Oxycodone HCl/Acetaminophen 1 - 2 each PO Q6H PRN #14 tablet 05/31/19 [Percocet 5-325 mg Tablet] Tamsulosin [Flomax] 0.4 mg PO DAILY #14 capsule 05/31/19 - Allergies Allergies/Adverse Reactions: Allergies Allergy/AdvReac Type Severity Reaction Status Date / Time No Known Drug Allergies Allergy Verified 05/31/19 12:11 - Social History Does the pt smoke?: No Smoking Status: Former smoker Does the pt drink ETOH?: Yes Does the pt have substance abuse?: No - POLST Patient has POLST: No PD ED PE NORMAL - Vitals Vital signs reviewed: Yes - General General: Alert and oriented X 3, No acute distress - HEENT HEENT: PERRL - Neck Neck: Supple, no meningeal sign - Cardiac Cardiac: RRR - Respiratory Respiratory: Clear bilaterally - Abdomen Abdomen: Other (Soft, rotund, tender in the right lower quadrant, the remainder of the abdomen is tender. There are no overlying lesions.) - Derm Derm: Warm and dry - Extremities Extremities: No deformity - Neuro Neuro: Alert and oriented X 3 - Psych Psych: Normal mood, Normal affect Results - Vitals Vitals: Vital Signs - 24 hr 05/31/19 05/31/19 12:08 16:40 Temperature 36.8 C Heart Rate 52 L 57 L Respiratory 18 18 Rate Blood Pressure 176/81 H 127/73 O2 Saturation 96 98 Oxygen O2 Source Room air - Labs Labs: Laboratory Tests 05/31/19 05/31/19 05/31/19 12:20 12:25 Unknown WBC 9.9 RBC 4.75 Hgb 14.4 Hct 44.5 MCV 93.7 MCH 30.3 MCHC 32.4 RDW 12.9 Plt Count 215 MPV 9.3 Neut # (Auto) 8.0 H Lymph # (Auto) 1.1 L [place] # (Auto) 0.7 Eos # (Auto) 0.1 Baso # (Auto) 0.0 Absolute Nucleated RBC 0.00 Nucleated RBC % 0.0 Sodium 140 Potassium 4.6 Chloride 102 Carbon Dioxide 28 Anion Gap 10.0 BUN 25 H Creatinine 1.5 H Estimated GFR (MDRD) 47 L Glucose 129 H Calcium 9.6 Total Bilirubin 0.7 AST 28 ALT 35 Alkaline Phosphatase 55 Total Protein 7.2 Albumin 4.1 Globulin 3.1 Albumin/Globulin Ratio 1.3 Lipase 29 Urine Color YELLOW Urine Clarity CLEAR Urine pH 5.0 Ur Specific [place] 1.025 Urine Protein NEGATIVE Urine Glucose (UA) NEGATIVE Urine Ketones NEGATIVE Urine Occult Blood LARGE H Urine Nitrite NEGATIVE Urine Bilirubin NEGATIVE Urine Urobilinogen 0.2 (NORMAL) Ur Leukocyte Esterase NEGATIVE Urine RBC TNTC H Urine WBC 0-3 Ur Squamous Epith Cells RARE Squamous Urine Bacteria Rare Ur Microscopic Review INDICATED Urine Culture Comments NOT INDICATED - Rads (name of study) CT abd/pelvis with contrast Radiology: Other (10mm obstructive stone in r distal ureter with stranding around kidney suggesting obstructive uropathy) PD MEDICAL DECISION MAKING - ED course Complexity details: considered differential (Nephrolithiasis, UTI, pyelonephritis, appendicitis, enteritis/gastroenteritis, diverticulitis) ED course: On examination patient is nontoxic-appearing, labs are notable for an elevated creatinine of 1.5, patient's baseline appears to be 1.1. CBC is unremarkable, CMP and lipase are otherwise unremarkable. Urinalysis shows no signs of infection, but does show too many red blood cells to count. IV was inserted he was given morphine and Zofran for pain and nausea control, 1 L normal saline bolus for fluid hydration. CT scan was performed, showing a 10mm obstructive stone in the right ureter, with signs of obstruction. I called and spoke with Dr. Spivey of [facility] u[facility] and reviewed patients CT and labs with him. He states that patient will almost certainly need an intervention but this does not need to be done emergently, patient can be seen in the next available appt at his office. Pt called the [facility] for follow up, and is also going to talk with [facility] where he has been a patient in the past to try to schedule follow up. He understands that he should see a urologist in the next week and will need a recheck of his creatinine to ensure it is not worsening. I think his current mild creatinine elevation is at least in part due to poor PO intake for nausea, which has been well controlled with medications here. 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 At this time he has no signs of infection, and his symptoms are well controlled and appears appropriate for discharge. I prescribed nausea and pain medications with instructions on the risks of narcotic medications. I reviewed strict return precuations. Pt's questions were answered and he was discharged home. Departure - Departure Disposition: 01 Home, Self Care Clinical Impression: Nephrolithiasis Condition: Good Instructions: ED Stone Renal W Colic Follow-Up: Your,urologist within one week [Other] Prescriptions: Ondansetron Odt [Zofran] 4 mg TL Q6H PRN #10 tablet PRN Reason: Nausea / Vomiting Oxycodone HCl/Acetaminophen [Percocet 5-325 mg Tablet] 1 - 2 each PO Q6H PRN #14 tablet PRN Reason: pain Tamsulosin [Flomax] 0.4 mg PO DAILY #14 capsule Comments: You have a 1 cm kidney stone in your right ureter, the tube connecting her kidney to your bladder. Please drink plenty of fluids, take the Flomax as prescribed, and you can control your pain with Tylenol, or Percocet if this is not sufficient. You may take Zofran for nausea. If you develop worsening abdominal pain, persistent vomiting, inability to urinate, or other concerning symptoms return to the emergency department as soon as possible. Follow-up with a urologist as soon as possible given that you are not likely to pass the stone on your own, and you need your creatinine rechecked. Do not drink alcohol or drive while taking narcotic pain medication. Note that many narcotic pain relievers also contain Tylenol/acetaminophen. Please ensure that your total dose of acetaminophen from all sources does not exceed 3 g (3000 mg) per day. You may get constipated while on this medication. Take a stool softener such as Colace twice a day while you are on it. Also add an [id number] laxative such as senna or MiraLAX on any day that you do not have a bowel movement. If you received a narcotic pain medication or sedative while in the emergency department, do not drive for the next 24 hours. Discharge Date/Time: 05/31/19 17:22
[2019-05-31] MEDS ORDERED: MORPHINE 2 MG/ML CARPUJECT IVP STA (13:48)
[2019-05-31] MEDS ORDERED: ONDANSETRON 4 MG/2 ML VIAL IVP STA (13:48)
[2019-05-31] MEDS ORDERED: SODIUM CHLORIDE 0.9% 1,000 ML IV ONE (13:49)
[2019-05-31] MEDS ORDERED: IOVERSOL 320 100 ML VIAL IVP ONE ×2 (14:17→14:24)
--- NOTE | 2019-05-31 14:48 | CT Report ---
Reason: RLQ abdominal pain, nausea Procedure Date: 05/31/2019 Accession Number: [id number] / [id number] Procedure: CT - Abdomen/Pelvis W CPT Code: FULL RESULT: EXAM: CT ABDOMEN AND PELVIS EXAM DATE: 05/31/2019 02:25 PM. CLINICAL HISTORY: RLQ abdominal pain, nausea. COMPARISONS: None. TECHNIQUE: Routine helical CT imaging was performed through the abdomen and pelvis. IV contrast: OPTI 320 90ML. Enteric contrast: No. Reconstructions: Coronal and sagittal. In accordance with CT protocol optimization, one or more of the following dose reduction techniques were utilized for this exam: automated exposure control, adjustment of mA and/or KV based on patient size, or use of iterative reconstructive technique. FINDINGS: Lung Bases: Mild left basilar atelectasis and scarring. Liver: Normal. No masses. Gallbladder/Bile Ducts: Unremarkable. Spleen: Normal. Pancreas: Normal. Adrenal Glands: Normal. Kidneys: A 10 mm obstructive calculus and right distal ureter with upstream hydroureteronephrosis. Mild perinephric fat stranding and delayed nephrogram and right kidney is consistent with acute obstructive uropathy. A 10 mm nonobstructive calculus is seen in mid polar region of right kidney. A 8 mm nonobstructive calculus is seen in mid polar region of left kidney. Peritoneal Cavity/Bowel: Normal. No free fluid, free air or adenopathy. No masses or acute inflammatory process. The appendix is well visualized and normal. A few colonic diverticula however no diverticulitis. Pelvic Organs: Normal. The bladder and visualized pelvic organs are within normal limits. Vasculature: Non-aneurysmal atherosclerotic calcification of abdominal aorta extending into bilateral iliacs. Bones: No significant abnormality. Other: None. IMPRESSION: A 10 mm obstructive calculus in right distal ureter with upstream hydroureteronephrosis. Delayed nephrogram and mild right perinephric fat stranding is consistent with acute obstructive uropathy. Bilateral nonobstructive renal calculi. RADIA
[2019-05-31 16:41] VITALS: BP 127/73
== END 2019-05-31 17:22 | disposition home or self-care (01) ==
LOC: ED 12:02
DX: N13.2 Hydronephrosis with renal and ureteral calculous obstruction (principal); I10 Essential (primary) hypertension; E11.9 Type 2 diabetes mellitus without complications; Z87.442 Personal history of urinary calculi; Z79.4 Long term (current) use of insulin; Z87.891 Personal history of nicotine dependence
CPT/HCPCS: 36415; 74177; 80053; 81001; 83690; 85025; 96361; 96374; 96375; 99284; Q9967; 81003; 87086

== ENCOUNTER 2019-08-21 07:14 | Outpatient (CLI) | payer OTHER ==
[2019-08-21 07:49] LABS: CREATININE,URINE 66.7 mg/dL; MICROALBUMIN,URINE 0.2 mg/dL (0-300.0)
[2019-08-21 08:00] LABS: BUN - BLOOD UREA NITROGEN 23 mg/dL (6-20); CALCIUM 9.2 mg/dL (8.5-10.3); CARBON DIOXIDE - CO2 28 mmol/L (21-32); CHLORIDE 103 mmol/L (101-111); CHOL/HDL RATIO 4.4 (<5.0); CHOLESTEROL 161 mg/dL; CREATININE 1.3 mg/dL (0.6-1.2); GFR - MDRD 55 (>89); GLUCOSE 135 mg/dL (70-100); HDL CHOLESTEROL 37 mg/dL; LDL CHOLESTEROL,CALCULATED 87 mg/dL; LDL/HDL RATIO 2.4 (<3.6); SODIUM 139 mmol/L (135-145); VLDL CHOLESTEROL 37 mg/dL
[2019-08-21 09:50] LABS: HB2 TOTAL 13.6 g/dL; HEMOGLOBIN A1C 0.73 g/dL; HEMOGLOBIN A1C % 7.1 % (4.6-6.2)
== END 2019-08-21 07:15 | disposition home or self-care (01) ==
LOC: LAB 07:14
PROVIDERS: ATTEND Internal Medicine
DX: J30.9 Allergic rhinitis, unspecified (principal); I25.9 Chronic ischemic heart disease, unspecified; K63.5 Polyp of colon; E11.9 Type 2 diabetes mellitus without complications; I50.30 Unspecified diastolic (congestive) heart failure; E78.5 Hyperlipidemia, unspecified; M54.5 Low back pain; N20.0 Calculus of kidney; G47.33 Obstructive sleep apnea (adult) (pediatric); B35.1 Tinea unguium; L98.9 Disorder of the skin and subcutaneous tissue, unspecified; I11.0 Hypertensive heart disease with heart failure
CPT/HCPCS: 36415; 80048; 80061; 82043; 82570; 83036; 83721